=== PATIENT | female | born 1995 | race African-American/Black ===

== ENCOUNTER 2023-10-08 11:41 | Emergency (ER) | payer OTHER ==
[2023-10-08 11:49] VITALS: BMI 24.0
[2023-10-08 13:23] LABS: BASO % 0.4 % (0-2.0); EOS % 0.2 % (0-4.5); HEMATOCRIT 32.3 % (32.4-45.2); HEMOGLOBIN 10.7 GM/dL (10.7-15.3); LYMPH % 18.8 % (8-40); MCHC 33.3 g/dl (32.0-36.0); MEAN CELL VOLUME 90.2 fl (80-96); MEAN PLT VOLUME 7.1 fl (7.5-11.1); MONO % 6.8 % (3.8-10.2); NEUT % 73.8 % (42.8-82.8); PLATELET COUNT 295 10^3/uL (134-434); RBC 3.58 M/mm3 (3.60-5.2); RDW 13.2 % (11.6-15.6); WHITE BLOOD COUNT 8.3 K/mm3 (4.0-10.0)
[2023-10-08 13:29] LABS: PROTHROMBIN TIME (PATIENT) 11.6 SEC (9.7-13.0)
[2023-10-08 13:38] LABS: POTASSIUM 4.2 mmol/L (3.5-5.1)
[2023-10-08 13:40] LABS: BLOOD UREA NITROGEN 9.4 mg/dL (7-18); CALCIUM 8.6 mg/dL (8.5-10.1)
[2023-10-08 13:41] LABS: ALBUMIN 3.7 g/dl (3.4-5.0)
[2023-10-08 13:43] LABS: CREATININE 0.6 mg/dL (0.55-1.3)
[2023-10-08 13:45] LABS: BILIRUBIN,TOTAL 0.4 mg/dL (0.2-1); TOT PROT 7.4 g/dl (6.4-8.2)
[2023-10-08 19:08] VITALS: RESP 18
[2023-10-08] MEDS ORDERED: HYDROmorphone HCl 2 MG/ML VIAL ONE (19:15)
[2023-10-08] MEDS ORDERED: ONDANSETRON 4 MG/2 ML VIAL ONE (19:15)
[2023-10-08 19:17] LABS: HEMATOCRIT 28.2 % (32.4-45.2); HEMOGLOBIN 9.7 GM/dL (10.7-15.3); MCH 30.6 pg (25.7-33.7); MCHC 34.4 g/dl (32.0-36.0); MEAN CELL VOLUME 88.9 fl (80-96); MEAN PLT VOLUME 7.3 fl (7.5-11.1); PLATELET COUNT 282 10^3/uL (134-434); RBC 3.18 M/mm3 (3.60-5.2); RDW 13.3 % (11.6-15.6); WHITE BLOOD COUNT 7.7 K/mm3 (4.0-10.0)
[2023-10-08] MEDS: ONDANSETRON 4 MG/2 ML VIAL IVPUSH ONE (20:13)
[2023-10-08] MEDS: HYDROmorphone HCl 2 MG/ML VIAL IVPUSH ONE (20:13)
[2023-10-08] MEDS: METHYLERGONOVINE MALEATE 0.2 MG/1 ML AMP IM ONE (20:13)
[2023-10-08] MEDS: MISOPROSTOL 200 MCG TABLET PR ONE (20:13)
[2023-10-08] MEDS: OXYTOCIN 30 UNITS in 0.9% NS 30 UNIT/500 ML INFUS.BAG IVPB SCH (21:26)
[2023-10-08 23:10] VITALS: BP 110/76; PULSE 78; TEMP 98.2
== END 2023-10-08 23:10 | disposition home or self-care (01) ==
LOC: JER 11:41
PROC: 3E033GC Introduction of Other Therapeutic Substance into Peripheral Vein, Percutaneous Approach (ICD-10-PCS; principal; 2023-10-08)
PROC: 3E033GC Introduction of Other Therapeutic Substance into Peripheral Vein, Percutaneous Approach (ICD-10-PCS; 2023-10-08)
PROC: 3E033GC Introduction of Other Therapeutic Substance into Peripheral Vein, Percutaneous Approach (ICD-10-PCS; 2023-10-08)
DX: O72.2 Delayed and secondary postpartum hemorrhage (principal)
CPT/HCPCS: 36415; 76817-TC; 76856-TC; 80053; 84702; 85025; 85027; 85610; 86850; 86900; 86901; 88305-TC; 99284-25